=== PATIENT | male | born 1985 | race Caucasian/White ===

== ENCOUNTER 2019-06-25 21:25 | Emergency (ER) | payer MEDICAID, SELFPAY ==
[~2019-06-25] VITALS: Ht 175.3 cm; Wt 63.6 kg
[2019-06-25 21:25] VITALS: BP 111/58
[2019-06-25] MEDS ORDERED: IPRATROPIUM 0.5MG/ALBUTEROL 2.5MG INH SOL UD 3ML (DUONEB)(J7620) NEB PRN (22:15)
[2019-06-25] MEDS ORDERED: methylPREDNISolone INJ 125 MG/2 ML VIAL (J2930) IV ONE (22:15)
[2019-06-25 23:15] LABS: BASO # 0.1 10^3/uL (0.0-0.2); BASO % 0.7 % (0.0-1.0); EOS # 1.7 10^3/uL (0.0-0.5); HEMATOCRIT 44.6 % (42.0-52.0); LYMPH # 2.7 10^3/uL (1.5-5.0); LYMPH % 17.7 % (24.0-44.0); MEAN CORPUSCULAR HEMOGLOBIN 30.4 pg (27.0-33.0); MEAN CORPUSCULAR HGB CONC 33.6 g/dl (32.0-36.5); MEAN CORPUSCULAR VOLUME 90.3 fl (80.0-96.0); MONO # 1.1 10^3/uL (0.0-0.8); MONO % 7.3 % (0.0-5.0); NEUTROPHILS # 9.5 10^3/uL (1.5-8.5); NEUTROPHILS % 62.8 % (36.0-66.0); PLATELET COUNT, AUTOMATED 362 10^3/uL (150-450); RED BLOOD COUNT 4.94 10^6/uL (4.30-6.10); WHITE BLOOD COUNT 15.1 10^3/uL (4.0-10.0)
[2019-06-25 23:36] LABS: BLOOD UREA NITROGEN 12 MG/DL (7-18); CARBON DIOXIDE LEVEL 29 MEQ/L (21-32); CHLORIDE LEVEL 100 MEQ/L (98-107); CPK CREATINE PHOSPHOKINASE 599 U/L (39-308); CREATININE FOR GFR 0.97 MG/DL (0.70-1.30); GLOMERULAR FILTRATION RATE > 60.0 (>60); GLUCOSE, FASTING 78 MG/DL (70-100); MB/CK RELATIVE INDEX 0.83 (< OR =4); POTASSIUM SERUM 4.2 MEQ/L (3.5-5.1); SODIUM LEVEL 137 MEQ/L (136-145); TROPONIN I < 0.02 NG/ML (< 0.10)
[2019-06-25 23:48] LABS: INFLUENZA A AMPLIFICATION NEGATIVE (NEGATIVE); INFLUENZA B AMPLIFICATION NEGATIVE (NEGATIVE)
[2019-06-25] MEDS ORDERED: ISOVUE-370 76% 100ML VIAL (Q9967) As Ordered ONE (23:58)
--- NOTE | 2019-06-26 08:05 | REP ---
Clinical: Shortness of breath . Comparison: 06/06/2019 . Technique: PA and lateral. Findings: The mediastinum and cardiac silhouette are normal. The lung [place] are clear and without acute consolidation, effusion, or pneumothorax. The skeletal structures are intact and normal. Impression: 1. No acute cardiopulmonary process. Electronically Signed by Medardo Mcgowan MD 06/26/2019 07:57 A
== END 2019-06-26 00:13 | disposition left against medical advice (07) ==
LOC: M ED 21:25
DX: F17.200 Nicotine dependence, unspecified, uncomplicated (principal); F12.90 Cannabis use, unspecified, uncomplicated; Z53.20 Procedure and treatment not carried out because of patient's decision for unspecified reasons
CPT/HCPCS: 36415; 71046; 80048; 82550; 82553; 85025; 87502; 87880; 96374; 99284; J2930

== ENCOUNTER → 2019-11-01 | Outpatient (REF) | payer OTHER | LOC: M LAB REF 17:51 | PROVIDERS: ATTEND Physician Assistant | DX: E50.9 Vitamin A deficiency, unspecified (principal); R05 Cough ==

== ENCOUNTER → 2020-02-08 | Emergency (ER) | payer OTHER | END | disposition left against medical advice (07) | LOC: M ED 21:31 | DX: Z53.21 Procedure and treatment not carried out due to patient leaving prior to being seen by health care provider (principal) ==

== ENCOUNTER 2021-10-30 22:22 | Emergency (ER) | payer OTHER ==
[~2021-10-30] VITALS: Ht 172.7 cm; Wt 65.4 kg
[2021-10-30 22:23] VITALS: BP 130/78
== END 2021-10-31 01:11 | disposition left against medical advice (07) ==
LOC: M ED 22:22
DX: Z53.29 Procedure and treatment not carried out because of patient's decision for other reasons (principal)

== ENCOUNTER 2023-12-20 13:12 | Emergency (ER) | payer OTHER ==
[~2023-12-20] VITALS: Ht 172.7 cm; Wt 67.3 kg
[2023-12-20] MEDS: NS 1,000 ML IV ONE (14:00)
[2023-12-20 14:32] LABS: BASO % 0.3 % (0.0-1.0); EOS # 0.7 10^3/uL (0.0-0.5); EOS % 7.2 % (0.0-3.0); HEMOGLOBIN 16.1 g/dl (13.5-17.5); LYMPH # 2.4 10^3/uL (1.5-5.0); LYMPH % 26.4 % (24.0-44.0); MEAN CORPUSCULAR HEMOGLOBIN 31.3 pg (27.0-33.0); MEAN CORPUSCULAR HGB CONC 35.8 g/dl (32.0-36.5); MEAN CORPUSCULAR VOLUME 87.4 fl (80.0-96.0); MONO # 0.6 10^3/uL (0.0-0.8); MONO % 6.4 % (2.0-8.0); NEUTROPHILS # 5.5 10^3/uL (1.5-8.5); NEUTROPHILS % 59.5 % (36.0-66.0); PLATELET COUNT, AUTOMATED 264 10^3/uL (150-450); RED BLOOD COUNT 5.15 10^6/uL (4.30-6.10); WHITE BLOOD COUNT 9.2 10^3/uL (4.0-10.0)
[2023-12-20 14:55] LABS: LIPASE 32 U/L (12-53)
[2023-12-20 14:57] LABS: ALBUMIN 3.9 G/DL (3.2-5.2); ALKALINE PHOSPHATASE 74 U/L (46-116); ALT/SGPT 15 U/L (7.0-40); AST/SGOT 12 U/L (<34); BILIRUBIN,TOTAL 0.5 MG/DL (0.3-1.2); BLOOD UREA NITROGEN 13 MG/DL (9-23); CALCIUM LEVEL 9.1 MG/DL (8.5-10.1); CARBON DIOXIDE LEVEL 28 MMOL/L (20-31); CHLORIDE LEVEL 105 MMOL/L (98-107); CREATININE FOR GFR 0.87 MG/DL (0.70-1.30); GLOMERULAR FILTRATION RATE > 60.0 (>60); GLUCOSE, FASTING 78 MG/DL (60-100); POTASSIUM SERUM 4.5 MMOL/L (3.5-5.1); SODIUM LEVEL 137 MMOL/L (136-145); TOTAL PROTEIN 6.8 G/DL (5.7-8.2)
[2023-12-20] MEDS: ONDANSETRON 4MG 2ML VIAL IV ONE (16:02)
[2023-12-20] MEDS ORDERED: ONDA-282 PO (16:46)
[2023-12-20 17:14] VITALS: BP 117/66; TEMP 97.7; O2SAT 98
== END 2023-12-20 17:36 | disposition home or self-care (01) ==
LOC: M ED 13:12
DX: R11.0 Nausea (principal); R19.7 Diarrhea, unspecified; F17.210 Nicotine dependence, cigarettes, uncomplicated; Z79.899 Other long term (current) drug therapy
CPT/HCPCS: 80053; 83690; 85025; 96374; 99283; J2405

== ENCOUNTER 2024-11-14 06:49 | Emergency (ER) | payer OTHER, SELFPAY ==
[~2024-11-14] VITALS: Ht 175.3 cm; Wt 66.7 kg
[~2024-11-14 06:49] MED LIST: ONDA-282 PO
[2024-11-14] MEDS: ONDANSETRON 4MG 2ML VIAL IV ONE (08:13)
[2024-11-14] MEDS: NS (Normal Saline) 0.9% 1,000 ML IV ONE (08:13)
[2024-11-14] MEDS ORDERED: ONDA-282 PO (08:57)
[2024-11-14 09:30] VITALS: BP 109/67; TEMP 98.2; O2SAT 98
== END 2024-11-14 09:30 | disposition home or self-care (01) ==
LOC: M ED 06:49
DX: A08.4 Viral intestinal infection, unspecified (principal); Z79.899 Other long term (current) drug therapy
CPT/HCPCS: 96361; 96374; 99284; J2405